=== PATIENT | male | born 1960 | race Hispanic/Latino ===

== ENCOUNTER 2019-06-05 10:30 | Emergency (ER) | payer SELFPAY ==
[2019-06-05 10:35] VITALS: BP 128/99
--- NOTE | 2019-06-05 11:14 | Emergency Department Report ---
HPI - General Chief Complaint: Upper Respiratory Infection Time Seen by Provider: 06/05/19 11:02 - HPI HPI: 58-year-old male presents to the emergency department with complaint of a 24-hour history of some body aches, subjective fever, runny nose, sore throat and a productive cough. He says "I think I'm coming down with a cold." He is in some type of program where he says "everybody is sick." He has a history of hypertension. He is a tobacco smoker but denies any illicit drug use. No recent travel. Does not have a primary care physician. He has not taken anything for her symptoms prior to arrival today. ED Past Medical Hx - Past Medical History Previous Medical History?: Yes Hx Hypertension: Yes - Surgical History Past Surgical History?: No - Social History Smoking Status: Current Every Day Smoker Substance Use Type: None - Medications Home Medications: Home Medications Medication Instructions Recorded Confirmed Last Taken Type ALBUTEROL Inhaler (OR & NICU) 2 puff IH QID PRN #1 inh 06/05/19 Unknown Rx [ProAir HFA Inhaler] Benzonatate [Tessalon Perles] 100 mg PO Q8HR PRN #20 capsule 06/05/19 Unknown Rx ED Review of Systems ROS: Stated complaint: BODYACHES Other details as noted in HPI Comment: All other systems reviewed and negative Constitutional: chills, fever (subjective) Eyes: denies: eye pain, vision change ENT: throat pain, congestion. denies: ear pain Respiratory: cough. denies: shortness of breath Cardiovascular: denies: chest pain, palpitations Gastrointestinal: denies: abdominal pain, vomiting Musculoskeletal: myalgia. denies: joint swelling Skin: denies: rash, lesions Neurological: denies: headache, weakness Physical Exam - Physical Exam Vital Signs: Vital Signs 06/05/19 10:33 Temperature 97.9 F Pulse Rate 82 Respiratory 16 Rate Blood Pressure 128/99 [Left] O2 Sat by Pulse 99 Oximetry Physical Exam: GENERAL: The patient is well-developed well-nourished. HENT: Normocephalic. Atraumatic. Patient has moist mucous membranes. Oropharynx is clear without any tonsillar hypertrophy, erythema or exudates. There is some postnasal drip seen. Boggy nasal mucosa. EYES: Extraocular motions are intact. Pupils equal reactive to light bilaterally. NECK: Supple. Trachea is midline. CHEST/LUNGS: Clear to auscultation. No tachypnea or accessory muscle use. Occasional productive sounding cough is heard during examination. There is no respiratory distress noted. HEART/CARDIOVASCULAR: Regular. There is no tachycardia. There is no murmur. ABDOMEN: There is no abdominal distention. SKIN: Skin is warm and dry. NEURO: The patient is awake, alert, and oriented. The patient is cooperative. The patient has no focal neurologic deficits. Normal speech. MUSCULOSKELETAL: There is no tenderness or deformity. There is no evidence of acute injury. ED Course Vital Signs 06/05/19 10:33 Temperature 97.9 F Pulse Rate 82 Respiratory 16 Rate Blood Pressure 128/99 [Left] O2 Sat by Pulse 99 Oximetry ED Medical Decision Making - Radiology Data Radiology results: image reviewed interpreted by me: Chest x-ray does not show any acute process. There are no pleural effusions, obvious pneumonia and there is no pneumothorax. - Medical Decision Making Patient presents with some upper respiratory/cold type symptoms. No focus of infection seen on physical examination. Negative for influenza and rapid strep. Chest x-ray does not show any pneumonia, pleural effusions, or any other acute process. Vital signs are within normal limits including being afebrile. Patient most likely has a viral upper respiratory infection. He was given a perception for albuterol inhaler and Tessalon Perles for his cough. He has been instructed to follow-up with primary care and return to the emergency Department with any worsening of his symptoms or any acute distress. - Differential Diagnosis pneumonia, influenza, strep pharyngitis, viral URI Critical Care Time: No Critical care attestation.: If time is entered above; I have spent that time in minutes in the direct care of this critically ill patient, excluding procedure time. ED Disposition Clinical Impression: Viral upper respiratory infection Pharyngitis Qualifiers: Pharyngitis/tonsillitis etiology: unspecified etiology Qualified Code(s): J02.9 - Acute pharyngitis, unspecified Disposition: DC-01 TO HOME OR SELFCARE Is pt being admited?: No Condition: Stable Instructions: Pharyngitis (ED), Upper Respiratory Infection (ED), Cold Symptoms (ED) Additional Instructions: Please follow-up with a primary care physician in the next few days. Return to the emergency Department with any worsening of your symptoms or any acute distress. Please try and quit smoking. Prescriptions: ALBUTEROL Inhaler (OR & NICU) [ProAir HFA Inhaler] 2 puff IH QID PRN #1 inh PRN Reason: Shortness Of Breath Benzonatate [Tessalon Perles] 100 mg PO Q8HR PRN #20 capsule PRN Reason: Cough Referrals: CARLOS MCCORMICK MD [Staff Physician] - 2-3 Days [facility] [Outside] - 2-3 Days Forms: Work/School Release Form(ED) Time of Disposition: 11:43
--- NOTE | 2019-06-05 11:39 | XRay Report ---
CHEST 2 VIEWS INDICATION: Cough. COMPARISON: None FINDINGS: Support devices: None. Heart: Within normal limits. Lungs/pleura: The lungs appear mildly hyperinflated but clear. No acute air space or interstitial dis ease. No pneumothorax. Additional findings: None. IMPRESSION: No acute findings. Mild hyperinflation. Signer Name: Gary Villagomez Jr, MD Signed: 06/05/2019 11:35 AM Workstation Name: [id number]
== END 2019-06-05 12:14 | disposition home or self-care (01) ==
LOC: ED 10:30
DX: J02.9 Acute pharyngitis, unspecified (principal); J06.9 Acute upper respiratory infection, unspecified; I10 Essential (primary) hypertension; F17.200 Nicotine dependence, unspecified, uncomplicated
CPT/HCPCS: 71046; 87116; 87400; 87430; 99284